=== PATIENT | male | born 1935 | race Caucasian/White ===

== ENCOUNTER → 2017-04-09 | Emergency (ER) | payer MEDICARE, OTHER ==
[~2017-04-09] MED LIST: EPINEPHrine INJ 0.1 MG/ML 10 ML SYG IV ONE
[2017-04-09 18:49] VITALS: BP 0/0; O2SAT 0
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
== END | disposition expired ==
LOC: ER 18:39
DX: S01.90XA Unspecified open wound of unspecified part of head, initial encounter (principal); Y92.009 Unspecified place in unspecified non-institutional (private) residence as the place of occurrence of the external cause